=== PATIENT | female | born 1945 | race Caucasian/White ===

== ENCOUNTER 2022-11-11 06:40 | Day surgery (SDC) | payer OTHER, SELFPAY ==
--- NOTE | 2022-11-11 06:53 | SUR.PREOP ---
Patient provided home covid negative results to RN.
--- NOTE | 2022-11-11 06:53 | SUR.PREOP ---
The eye drops brought by the patient (Ketorolac and Prednisolone) are examined and I have determined they are labeled by the patient's pharmacy for this patient as prescribed by the surgeon. The bottles are intact, recently obtained and appear to be correct.
[2022-11-11] MEDS: TETRACAINE 0.5% OPHTH 1 DROP EYE-RIGHT ×2 (07:06→07:13)
[2022-11-11] MEDS: KETOROLAC OPHTH 0.5% 1 DROP EYE-RIGHT ×3 (07:09→07:32)
[2022-11-11 07:29] VITALS: BMI 37.5
--- NOTE | 2022-11-11 07:29 | W.ANESCHARGE ---
Anesthesia Charges Start Date/Time Anesthesia Start Date: 11/11/22 Anesthesia Start Time: 07:57 Stop Date/Time Anesthesia Stop Date: 11/11/22 Anesthesia Stop Time: 08:42 Summary Extremes of Age - Over 70 or under 1: MDA
[2022-11-11 07:35] VITALS: BP 172/86; PULSE 59; RESP 16; TEMP 36.4; O2SAT 95
[2022-11-11] MEDS: SODIUM CHLORIDE 0.9 % (FLUSH) 10 ML SYRINGE IVF (07:37)
--- NOTE | 2022-11-11 08:00 | P.ANES_ITS ---
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
[2022-11-11] MEDS: TETRACAINE 0.5% OPHTH 2 DROP EYE-RIGHT (08:01)
[2022-11-11] MEDS: BALANCED SALT IRRIG SOLN 15 ML EYE-RIGHT (08:05)
[2022-11-11 08:48] VITALS: BP 168/90; PULSE 61; RESP 16; TEMP 36.7; O2SAT 95
--- NOTE | 2022-11-11 09:30 | P.OPTPRC_ITS ---
Procedure Note Date of procedure: 11/11/22 Will [facility] bill your pro fee for this procedure?: Yes Procedure Description: SURGEON: Kiera Garcia MD PREOPERATIVE DIAGNOSIS: 1. Nuclear sclerotic cataract, right eye. 2. Miosis, right eye. POSTOPERATIVE DIAGNOSIS: 1. Nuclear sclerotic cataract, right eye. 2. Miosis, right eye. NAME OF OPERATION: Phacoemulsification of cataract with posterior chamber intraocular lens implantation in the right eye with pupilloplasty. ANESTHESIA: Topical. ESTIMATED BLOOD LOSS: Less than 2 cc. COMPLICATIONS: None. PATHOLOGY SPECIMEN: None. INDICATIONS: See consult note for details. The risks, benefits and alternatives of the procedure were explained to the patient, who elected to proceed and signed informed consent to do so. PROCEDURE: The patient was brought to the pre-holding area where the right eye was identified as the operative eye. I placed my initials above this eye. The patient received eye drops consisting of 0.5% tetracaine, 1% tropicamide, 10% phenylephrine, and 0.5% ketorolac. The patient was then brought to the operating room where the right eye was again identified as the operative eye. The eye was prepped with Betadine and draped in the usual sterile ophthalmic fashion. A #15 super-sharp blade was used to create a paracentesis site. 1% non-preserved intracameral lidocaine was injected into the anterior chamber. Endocoat was injected into the anterior chamber. A 2.4 mm keratome was used to create a three-plane self-sealing incision 1 mm anterior to the temporal limbus. A #15 super-sharp blade was used to create four additional paracentesis sites. Four Grieshaber iris hooks were placed in order to stretch the iris. A cystotome was used to create an anterior capsular leaflet. The Utrata forceps were used to extend this to form a continuous curvilinear capsulorrhexis. Hydrodissection was performed. The cataract was removed with phacoemulsification using the [id number] technique. The irrigation and aspiration tip was used to remove the remaining cortex. Healon was injected into the capsular bag. An KRIS ZCB00 intraocular lens of 16.0 diopters was injected into the capsular bag. The four Grieshaber iris hooks were removed. The irrigation and aspiration tip was used to remove the remaining viscoelastic. Miostat was injected into the anterior chamber. Balanced salt solution on a cannula was used to hydrate the wound, and the wound was found to be watertight. The pupil was noted to be round. DISPOSITION: The patient was taken to the recovery room and discharged to home in stable condition. The patient was instructed to call me or go to the emergency department with any sudden change, including dramatic loss of vision, severe pain in the eye or eyebrow region, nausea, or vomiting. The patient will follow up in the clinic tomorrow morning.
== END 2022-11-11 09:05 | disposition home or self-care (01) ==
PROVIDERS: PCP Family Medicine; Visit Provider Ophthalmology
PROC: (CPT 66982; principal; 2022-11-11 06:45)
DX: H25.11 Age-related nuclear cataract, right eye (principal); H57.03 Miosis
CPT/HCPCS: 66982; 00142; 99100; A9270; J2250; J3010; V2632

== ENCOUNTER 2022-11-25 06:42 | Day surgery (SDC) | payer OTHER, SELFPAY ==
[2022-11-25] MEDS: TETRACAINE 0.5% OPHTH 1 DROP EYE-LEFT ×2 (06:40→06:45)
[2022-11-25] MEDS: KETOROLAC OPHTH 0.5% 1 DROP EYE-LEFT ×3 (06:40→06:50)
[2022-11-25 07:00] VITALS: BP 197/111; PULSE 84; RESP 16; TEMP 36.9; O2SAT 94; BMI 37.3
[2022-11-25] MEDS: SODIUM CHLORIDE 0.9 % (FLUSH) 10 ML SYRINGE IVF (07:15)
--- NOTE | 2022-11-25 07:16 | SUR.PREOP ---
The eye drops brought by the patient (Ketorolac, Oflaxacin, and Prednisolone) are examined and I have determined they are labeled by the patient's pharmacy for this patient as prescribed by the surgeon. The bottles are intact, recently obtained and appear to be correct.
[2022-11-25] MEDS: TETRACAINE 0.5% OPHTH 2 DROP EYE-LEFT (07:53)
[2022-11-25] MEDS: BALANCED SALT IRRIG SOLN 15 ML EYE-LEFT (07:58)
--- NOTE | 2022-11-25 08:08 | W.ANESCHARGE ---
Anesthesia Charges Start Date/Time Anesthesia Start Date: 11/25/22 Anesthesia Start Time: 07:49 Stop Date/Time Anesthesia Stop Date: 11/25/22 Anesthesia Stop Time: 08:23 Summary Extremes of Age - Over 70 or under 1: MDA
[2022-11-25 08:20] VITALS: BP 169/85; PULSE 58; RESP 16; TEMP 36.4; O2SAT 96
--- NOTE | 2022-11-25 08:20 | W.ANESCHARGE ---
Anesthesia Charges Start Date/Time Anesthesia Start Date: 11/25/22 Anesthesia Start Time: 07:49 Stop Date/Time Anesthesia Stop Date: 11/25/22 Anesthesia Stop Time: 08:23
--- NOTE | 2022-11-25 08:27 | W.PM.OPTPROC ---
Procedure Note Date of procedure: 11/25/22 Will [facility] bill your pro fee for this procedure?: Yes Procedure Description: SURGEON: Kiera Garcia MD PREOPERATIVE DIAGNOSIS: Nuclear sclerotic cataract, left eye. POSTOPERATIVE DIAGNOSIS: Nuclear sclerotic cataract, left eye. NAME OF OPERATION: Phacoemulsification of cataract with posterior chamber intraocular lens implantation in the left eye. ANESTHESIA: Topical. ESTIMATED BLOOD LOSS: Less than 2 cc. COMPLICATIONS: None. PATHOLOGY SPECIMEN: None. INDICATIONS: See consult note for details. The risks, benefits and alternatives of the procedure were explained to the patient, who elected to proceed and signed informed consent to do so. PROCEDURE: The patient was brought to the pre-holding area where the left eye was identified as the operative eye. I placed my initials above this eye. The patient received eye drops consisting of 0.5% tetracaine, 1% tropicamide, 10% phenylephrine, and 0.5% ketorolac. The patient was then brought to the operating room where the left eye was again identified as the operative eye. The eye was prepped with Betadine and draped in the usual sterile ophthalmic fashion. A #15 super-sharp blade was used to create a paracentesis site. 1% non-preserved intracameral lidocaine was injected into the anterior chamber. Endocoat was injected into the anterior chamber. A 2.4 mm keratome was used to create a three-plane self-sealing incision 1 mm anterior to the temporal limbus. A cystotome was used to create an anterior capsular leaflet. The Utrata forceps were used to extend this to form a continuous curvilinear capsulorrhexis. Hydrodissection was performed. The cataract was removed with phacoemulsification using the [id number] technique. There was mild iris prolapse at the incision site. The iris was carefully repositioned with a sweeping motion with the 2nd instrument. The irrigation and aspiration tip was used to remove the remaining cortex. Healon was injected into the capsular bag. An KRIS ZCB00 intraocular lens of 17.0 diopters was injected into the capsular bag. The irrigation and aspiration tip was used to remove the remaining viscoelastic. Miostat was injected in the anterior chamber due to the intermittent iris prolapse. Balanced salt solution on a cannula was used to hydrate the wound, and the wound was found to be watertight. The pupil was noted to be round. DISPOSITION: The patient was taken to the recovery room and discharged to home in stable condition. The patient was instructed to call me or go to the emergency department with any sudden change, including dramatic loss of vision, severe pain in the eye or eyebrow region, nausea, or vomiting. The patient will follow up in the clinic tomorrow morning.
== END 2022-11-25 08:45 | disposition home or self-care (01) ==
LOC: OR 06:42
PROVIDERS: PCP Family Medicine; Visit Provider Ophthalmology
PROC: (CPT 66984; principal; 2022-11-25 06:45)
DX: H25.12 Age-related nuclear cataract, left eye (principal)
CPT/HCPCS: 66984; 00142; 99100; A9270; J2250; J3010; V2632

== ENCOUNTER 2023-03-15 06:49 | Emergency (ER) | payer OTHER, SELFPAY ==
[2023-03-15 07:06] VITALS: BP 158/83; PULSE 74; RESP 18; TEMP 36.4; O2SAT 92; BMI 37.2
--- NOTE | 2023-03-15 07:22 | CRLHL7_ITS ---
For Patients: As a result of the Century Cures Act, medical imaging exams and procedure reports are released immediately into your electronic medical record. You may view this report before your referring provider. If you have questions, please contact your health care provider. Indication: Pain and swelling. Redness. Technique: A total of three views of the right foot were acquired. Comparison: None Findings: Bones: Alignment is normal. No fractures or bone lesions. Joint spaces: Minor arthritic changes Soft tissues: Calcaneal spurs. Soft tissue swelling. No gas within soft tissues. No radiopaque foreign body. Impression: Minor arthritic changes. Calcaneal spurs. Soft tissue swelling. No gas within soft tissues. No radiopaque foreign body. No acute fracture, dislocation or destructive process. Dictated by Atilio Patten MD @ 03/15/2023 7:55:51 AM (Electronically Signed)
--- NOTE | 2023-03-15 07:25 | ED.GENADULT ---
HPI - General Adult General Chief complaint: Extremity Pain/Injury, Lower Stated complaint: R foot injury Time Seen by Provider: 03/15/23 07:15 Source: patient Mode of arrival: ambulatory Limitations: no limitations History of Present Illness HPI narrative: 77-year-old female with notable history of hypertension presents to the emergency department with right lower ankle/medial foot pain for the past several months, worsening today. She reports that she saw her primary care doctor last week who has referred her to Podiatry but it will take several weeks get an appointment. There was no indication to do x-rays or blood work at that time. She reports that the pain is been worsening over the last few days. No trauma or injury. No prior surgery to the area, no fever. It does feel more swollen to her and is slightly warm to the touch. No skin infection, laceration or insect bites that started her symptoms. She is otherwise feeling well with no fevers or other unusual systemic symptoms. She has been taking ibuprofen 800 mg once daily for the past couple of days and it does seem to help in the mornings but it wears off and she did not know if she could take the medication again. She has not tried Tylenol, ice, compression or other treatments. No other affected joints currently. No anticoagulant use. Past medical history notable for hypertension per her report. She says that she takes atenolol, chlorthalidone, potassium and simvastatin. Notable for chlorthalidone to increase her risk of gout. She is a nonsmoker. No pertinent travel. ROS is notable for the musculoskeletal symptoms as above. Denies any other hematological, generalized, musculoskeletal, neurological or skin changes. Related Data Home Medications Medication Instructions Recorded Confirmed atenolol 50 mg-chlorthalidone 25 1 tab PO DAILY 11/10/22 03/15/23 mg tablet potassium chloride 10 mEq 20 meq PO BID 11/10/22 03/15/23 tablet,extended release(part/cryst) simvastatin 40 mg tablet 40 mg PO HS 11/10/22 03/15/23 Previous Rx's Medication Instructions Recorded prednisone 20 mg tablet 20 mg PO DAILY 5 days #5 tabs 03/15/23 tramadol 50 mg tablet 50 mg PO Q8H PRN pain #10 tabs 03/15/23 Allergies Allergy/AdvReac Type Severity Reaction Status Date / Time codeine Allergy Verified 03/15/23 07:12 lisinopril Allergy Verified 03/15/23 07:12 [facility] Medical History Breast cancer ?C50.919 - Malignant neoplasm of unspecified site of unspecified female breast (ICD-10) Hypokalemia ?E87.6 - Hypokalemia (ICD-10) Hypercholesteremia ?E78.00 - Pure hypercholesterolemia, unspecified (ICD-10) Hypertension ?I10 - Essential (primary) hypertension (ICD-10) Surgical History Hx of tubal ligation ?Z98.51 - Tubal ligation status (ICD-10) 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 - Presence of right artificial knee joint (ICD-10) Hx of left mastectomy ?Z90.12 - Acquired absence of left breast and nipple (ICD-10) Hx of appendectomy ?Z90.49 - Acquired absence of other specified parts of digestive tract (ICD-10) Social History Smoking Status: Never smoker How often do you have a drink containing alcohol: 2-3 times a week How many standard drinks containing alcohol do you have on a typical day: 1 or 2 AUDIT-C Alcohol total score: 3 Non-prescribed substance use: denies use Caffeine: Yes (coffee) Are you using contraception or practicing any form of control: No Exam Const: Vital Signs, click to edit/add: Vital Signs - 24 hr 03/15/23 07:06 Temperature 97.6 F Pulse Rate [Right Pulse Oximeter] 74 Respiratory Rate 18 Blood Pressure [Ri ght Upper Arm] 158/83 H Pulse Oximetry 92 Oxygen Delivery Me thod Room Air Documenting provider has reviewed patient's vital signs: yes Common normals: no apparent distress General appearance: cooperative and comfortable Other: Well nourished, well hydrated, does not appear acutely ill. HENMT: Common normals: normocephalic Head and scalp: normocephalic Mouth: oral and palatal mucosa normal Throat: posterior oropharynx normal Eye: General eye: normal appearance of both eyes Other: Normal gaze and tracking Resp: Common normals: normal respiratory effort, no use of accessory muscles and clear to auscultation bilaterally Auscultation: clear to auscultation bilaterally Cardio: Common normals: regular rate, regular rhythm and peripheral pulses 2+ throughout Rate: regular rate Rhythm: regular rhythm Peripheral pulses: pulses 2+ throughout Extremity: Other: Left foot and ankle normal. Right foot and ankle show mild swelling, warmth slight redness to the medial hindfoot, lower medial ankle area. Tender to palpation with no effusion. No broken skin, bruising or signs of lacerations. She moves the toes normally. She can flex extend invert and reji at the ankle with no restrictions but it is tender. No tenderness at the 1st MTP. Osteoarthritic changes noted to the hands wrists and feet but do not appear acutely inflamed with the exception of the foot joint as described above. Neuro: Speech: speech normal Motor exam: strength 5/5 throughout and no movement abnormalities noted Psych: Attitude: engaged Insight: fair Judgement: fair Skin: Common normals: no rashes or lesions noted General skin exam: no rashes or lesions noted Course Course Hospital Course: Suspect gout. Cannot exclude fracture, septic joint, osteoarthritis, tick-borne illness or other potential etiologies. Recommended x-ray, uric acid level, metabolic panel, CBC and CRP. Will start prednisone 50 mg p.o. x1, tramadol 100 mg and Tylenol 1000 mg. Re-evaluate after x-ray. Will plan to treat with prednisone taper and primary care follow-up if findings are as expected. Reevaluation(s) Time of Reevaluation #1: 08:28 Reevaluation #1: Reviewed initial labs and x-ray findings with patient. Discussed plan of care as outlined in discharge instructions, all questions answered. Vital Signs Vital signs: Initial Vital Signs Temperature 97.6 F 03/15/23 07:06 Temperature Source Temporal Artery Scan 03/15/23 07:06 Pulse Rate 74 03/15/23 07:06 Respiratory Rate 18 03/15/23 07:06 Blood Pressure 158/83 H 03/15/23 07:06 Blood Pressure Mean 108 H 03/15/23 07:06 Blood Pressure Position Sitting 03/15/23 07:06 Pulse Oximetry 92 03/15/23 07:06 Oxygen Delivery Method Room Air 03/15/23 07:06 Vital Signs Temperature 97.6 F 03/15/23 07:06 Pulse Rate 74 03/15/23 07:06 Respiratory Rate 18 03/15/23 07:06 Blood Pressure 158/83 H 03/15/23 07:06 Pulse Oximetry 92 03/15/23 07:06 Oxygen Delivery Method Room Air 03/15/23 07:06 Temperature 97.6 F 03/15/23 07:06 Pulse Rate 74 03/15/23 07:06 Respiratory Rate 18 03/15/23 07:06 Blood Pressure 158/83 H 03/15/23 07:06 Pulse Oximetry 92 03/15/23 07:06 Oxygen Delivery Method Room Air 03/15/23 07:06 Medical Decision Making Lab Data Lab results reviewed: Yes I reviewed the patient's lab results Lab results narrative: Not all labs are back. My day shift partner has elected to call patient if any abnormalities are seen. Labs: Lab Results 03/15/23 Range/Units 08:00 WBC 8.61 (4.50-11.00) K/uL RBC 4.32 (4.00-5.20) m/uL Hgb 13.3 (12.0-16.0) gm/dL Hct 39.7 (33.0-51.0) % MCV 92 (80-100) fL MCH 31 (26-34) pg MCHC 34 (32-36) gm/dL RDW Coeff of Galileo 12.5 (11.5-15.5) % Plt Count 179 (140-440) K/uL Neut % (Auto) 67.5 (42.0-72.0) % Lymph % (Auto) 13.2 L (20-44) % Davison % (Auto) 13.7 H (0.0-11.0) % Eos % (Auto) 4.8 (0.0-7.0) % Baso % (Auto) 0.5 (0.0-3.0) % Neut # (Auto) 5.81 (1.7-7.0) K/uL Lymph # (Auto) 1.10 (0.90-2.90) K/uL Davison # (Auto) 1.20 H (0.00-0.90) K/UL Eos # (Auto) 0.41 (0.00-0.50) K/uL Baso # (Auto) 0.04 (0.00-0.30) K/uL Abs Immat Gran (auto) 0.03 (0.00-0.30) K/uL Imm/Tot Granulo (auto) 0.3 % Imaging Data X-ray foot: Attestation: I have reviewed the pertinent imaging results. My impression: Osteoarthritic changes but no obvious fracture, effusions or other abnormality Radiologist's impression: Impression: Minor arthritic changes. Calcaneal spurs. Soft tissue swelling. No gas within soft tissues. No radiopaque foreign body. No acute fracture, dislocation or destructive process. Discharge Plan Discharge Clinical Impression: Gout of foot Patient Disposition: Home, Self-Care Condition: Stable Instructions: Gout (ED) Additional Instructions: As we discussed, I suspect that this is gouty arthritis in your foot. There certainly is some osteoarthritis on x-ray which is the typical wear and tear type of arthritis. Based on the fact that things are swollen, warm and more painful than usual, I suspect that gout has set in. There are medications that can prevent gout and you should discuss whether continuing on the chlorthalidone is right for you because this can make you more likely to get gout flares. I would like for you to follow-up with a primary care provider in 2-3 days to see how things are going. You can decide together if you should start on allopurinol or another similar medication to help prevent these flares in the future. I have started you on prednisone, anti-inflammatory medication. You were given a high dose here in the emergency department. He will continue on a smaller dose daily for the next 5 days. You will take your next dose of this tomorrow morning. For pain control, began Tylenol 1000 mg every 6 hours. Rest, ice and elevate. I will also give you a limited supply of tramadol, a pain medication that is stronger if the pain is more bothersome. It is okay to use Tylenol p.m. and melatonin to help you sleep at night if the pain is very bothersome. It is okay to use ibuprofen as well if the Tylenol and tramadol are not helpful. The prednisone does take a couple of days to fully kick in but most people note marked improvement within just a couple of days. If you start running high fevers, have severe weakness and or other emergent type symptoms, come back to the emergency department. Activity Level: Activity as Tolerated Discharge Diet: Regular Prescriptions: New prednisone 20 mg tablet 20 mg PO DAILY 5 Days Qty: 5 0RF Rx Instructions: Began morning of 03/16 tramadol 50 mg tablet 50 mg PO Q8H PRN (Reason: pain) Qty: 10 0RF No Action atenolol-chlorthalidone 50-25 mg tablet 1 tab PO DAILY simvastatin 40 mg tablet 40 mg PO HS potassium chloride 10 mEq tablet,ER particles/crystals 20 meq PO BID Follow Up/Referrals: Homero Sierra MD [Primary Care Provider] - Stand Alone Forms: [employer] [facility] Info Instructions
[2023-03-15] MEDS: predniSONE 10 MG TABLET 50 MG PO (07:54)
[2023-03-15] MEDS: ACETAMINOPHEN 500 MG TABLET 1000 MG PO (07:54)
[2023-03-15] MEDS: TRAMADOL HCL 50 MG TABLET 100 MG PO (07:55)
[2023-03-15 08:09] LABS: Basophils Absolute Auto 0.04 K/uL (0.00-0.30); Basophils Percent Auto 0.5 % (0.0-3.0); Eosinophils Absolute Auto 0.41 K/uL (0.00-0.50); Eosinophils Percent Auto 4.8 % (0.0-7.0); Hematocrit 39.7 % (33.0-51.0); Hemoglobin* 13.3 gm/dL (12.0-16.0); Immature Granulocytes Abs Auto 0.03 K/uL (0.00-0.30); Immature Granulocytes Pct Auto 0.3 %; Lymphocytes Percent Auto 13.2 % (20-44); Mean Corpuscular HGB Conc 34 gm/dL (32-36); Mean Corpuscular Hemoglobin 31 pg (26-34); Mean Corpuscular Volume 92 fL (80-100); Monocytes Percent Auto 13.7 % (0.0-11.0); Neutrophils Absolute Auto 5.81 K/uL (1.7-7.0); Neutrophils Percent Auto 67.5 % (42.0-72.0); Platelet Count* 179 K/uL (140-440); RDW Coefficient of Variation % 12.5 % (11.5-15.5); Red Blood Count 4.32 m/uL (4.00-5.20); White Blood Count* 8.61 K/uL (4.50-11.00)
[2023-03-15 08:20] LABS: Slide Review Reflex No
[2023-03-15 08:31] LABS: Chloride* 95 mmol/L (96-114); Potassium* 3.5 mmol/L (3.6-5.1); Sodium* 136 mmol/L (135-149)
[2023-03-15 08:34] LABS: Creatinine* 0.9 mg/dL (0.5-1.5); Est. Creatinine Clearance* 38.35; Estimated Glomerular Filt Rate 65 ml/min
[2023-03-15 08:35] LABS: Blood Urea Nitrogen* 19 mg/dL (7-30); Calcium* 9.3 mg/dL (8.4-10.6); Carbon Dioxide* 33 mmol/L (20-32); Glucose* 150 mg/dL (60-115); Uric Acid* 5.9 mg/dL (2.2-8.4)
[2023-03-15 08:37] LABS: C Reactive Protein* 2.3 mg/dL (0.5-1.0)
[2023-03-15 11:11] LABS: Anion Gap 8 mEq/L (7-15)
== END 2023-03-15 08:48 | disposition home or self-care (01) ==
PROVIDERS: Emergency Provider Family Medicine; PCP Family Medicine
DX: M10.9 Gout, unspecified (principal)
CPT/HCPCS: 36415; 73630; 80048; 84550; 85025; 86140; 99284; A9270; J7512

== ENCOUNTER 2023-05-18 16:02 | Emergency (ER) | payer OTHER, SELFPAY ==
[2023-05-18 16:33] VITALS: BP 188/103; PULSE 69; RESP 18; TEMP 36.6; O2SAT 95; BMI 35.4
--- NOTE | 2023-05-18 18:04 | CRLHL7_ITS ---
For Patients: As a result of the Century Cures Act, medical imaging exams and procedure reports are released immediately into your electronic medical record. You may view this report before your referring provider. If you have questions, please contact your health care provider. INDICATION: Right lateral calf palpable lump and pain. TECHNIQUE: Ultrasound venous duplex lower right extremity. Compression venous exam was performed using bone-scale, color Doppler, and spectral Doppler analysis. Focused sonographic evaluation was performed in the area the palpable lump along the lateral mid calf. COMPARISON: None available. FINDINGS: Deep veins: Sonographic imaging demonstrates the right common femoral, deep femoral, superficial femoral, popliteal, posterior tibial, peroneal and the contralateral left common femoral veins to be fully compressible with normal color Doppler blood flow. Superficial veins: Greater saphenous vein is fully compressible. No popliteal cyst. Limited focused examination in the area of the patient`s palpable abnormality demonstrates a small amount of subcutaneous edema. More detailed evaluation was not performed. IMPRESSION: No right lower extremity deep venous thrombosis. Dictated by Laura Matias MD @ 05/18/2023 7:38:03 PM (Electronically Signed)
--- NOTE | 2023-05-18 18:05 | ED_ITS ---
HPI - Extremity Injury (Lower) General Date Seen: 05/18/23 <Romero Hou MD - Last Filed: 05/20/23 12:51> Chief Complaint: Extremity Pain/Injury, Lower <Romero Hou MD - Last Filed: 05/20/23 12:51> Stated Complaint: R leg painful lump-referred by [facility]? <Romero Hou MD - Last Filed: 05/20/23 12:51> Time Seen by Provider: 05/18/23 18:05 <Romero Hou MD - Last Filed: 05/20/23 12:51> Source: patient <Romero Hou MD - Last Filed: 05/20/23 12:51> Mode of arrival: ambulatory <Romero Hou MD - Last Filed: 05/20/23 12:51> Limitations: no limitations <Romero Hou MD - Last Filed: 05/20/23 12:51> History of Present Illness HPI Narrative: Patient is a delightful 69-year-old female presents here with right leg pain, she describes a certain spot over her right lower leg. Below her knee that has been painful for approximately 3 weeks it is slightly worsened in the last few days. She called [facility] today and they suggested she come to the emergency room. She has never before had a DVT, she has had superficial thrombophlebitis. History of gout in right ankle, that cleared up approximately 1 month ago. She denies any chest pain shortness of breath feeling that she is going to pass out or hemoptysis. She is not on any anticoagulants. No history of recent breast cancer but 15 years ago ago she was diagnosed with left-sided breast cancer. <Romero Hou MD - Last Filed: 05/20/23 12:51> Related Data Home Medications: Home Medications Medication Instructions Recorded Confirmed atenolol 50 mg-chlorthalidone 25 1 tab PO DAILY 11/10/22 05/18/23 mg tablet potassium chloride 10 mEq 20 meq PO BID 11/10/22 05/18/23 tablet,extended release(part/cryst) simvastatin 40 mg tablet 40 mg PO HS 11/10/22 05/18/23 <Romero Hou MD - Last Filed: 05/20/23 12:51> Allergies/Adverse Reactions: Allergies Allergy/AdvReac Type Severity Reaction Status Date / Time codeine Allergy Verified 05/18/23 16:39 lisinopril Allergy Verified 05/18/23 16:39 <Romero Hou MD - Last Filed: 05/20/23 12:51> Review of Systems Status of ROS: Reports: 10 or more systems reviewed and unremarkable except as noted in History and below <Romero Hou MD - Last Filed: 05/20/23 12:51> [facility] Medical History: Medical History Breast cancer ?C50.919 - Malignant neoplasm of unspecified site of unspecified female breast (ICD-10) Hypokalemia ?E87.6 - Hypokalemia (ICD-10) Hypercholesteremia ?E78.00 - Pure hypercholesterolemia, unspecified (ICD-10) Hypertension ?I10 - Essential (primary) hypertension (ICD-10) <Romero Hou MD - Last Filed: 05/20/23 12:51> Surgical History: Surgical History Hx of tubal ligation ?Z98.51 - Tubal ligation status (ICD-10) 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 - Presence of right artificial knee joint (ICD-10) Hx of left mastectomy ?Z90.12 - Acquired absence of left breast and nipple (ICD-10) Hx of appendectomy ?Z90.49 - Acquired absence of other specified parts of digestive tract (ICD- 10) <Romero Hou MD - Last Filed: 05/20/23 12:51> Social History: Social History Smoking Status: Never smoker How often do you have a drink containing alcohol: 2-3 times a week How many standard drinks containing alcohol do you have on a typical day: 1 or 2 AUDIT-C Alcohol total score: 3 Non-prescribed substance use: denies use Caffeine: Yes (coffee) Are you using contraception or practicing any form of control: No service: No <Romero Hou MD - Last Filed: 05/20/23 12:51> Exam Narrative: Exam Narrative: Patient is seen in the hallway due to the dizziness, she does have an elevated blood pressure. Denies any current really significant pain, she shows me her right lower leg, on the outside part of her lower extremity, there is an area of slight redness his discomfort, proximally 3 x 3 cm, I suspect this is superficial thrombophlebitis or distal pulses DP and posterior tibial are normal popliteal is normal, there is no significant edema she moves her extremities through full range of motion. No effusion of her ankle or knee are noted. Her chest is good air entry bilaterally with no wheezing crackles noted her heart sounds are normal. <Romero Hou MD - Last Filed: 05/20/23 12:51> Exam Narrative: Patient is seen in the hallway due to the busy-ness, she does have an elevated blood pressure. Denies any current really significant pain, she shows me her right lower leg, on the outside part of her lower extremity, there is an area of slight redness his discomfort, proximally 3 x 3 cm, I suspect this is superficial thrombophlebitis or distal pulses DP and posterior tibial are normal popliteal is normal, there is no significant edema she moves her extremities through full range of motion. No effusion of her ankle or knee are noted. Her chest is good air entry bilaterally with no wheezing crackles noted her heart sounds are normal. <Mateo Gupta MD - Last Filed: 05/18/23 18:59> Const: Vital Signs, click to edit/add: Vital Signs - 24 hr 05/18/23 16:33 Temperature 97.8 F Pulse Rate [Pulse Oximeter] 69 Respiratory Rate 18 Blood Pressure [Ri ght Upper Arm] 188/103 H Pulse Oximetry 95 Oxygen Delivery Me thod Room Air <Romero oHu MD - Last Filed: 05/20/23 12:51> Vital Signs, click to edit/add: Vital Signs - 24 hr 05/18/23 16:33 Temperature 97.8 F Pulse Rate [Pulse Oximeter] 69 Respiratory Rate 18 Blood Pressure [Ri ght Upper Arm] 188/103 H Pulse Oximetry 95 Oxygen Delivery Me thod Room Air <Mateo Gupta MD - Last Filed: 05/18/23 18:59> Documenting provider has reviewed patient's vital signs: yes <Romero Hou MD - Last Filed: 05/20/23 12:51> Course Vital Signs Vital signs: Initial Vital Signs Temperature 97.8 F 05/18/23 16:33 Temperature Source Temporal Artery Scan 05/18/23 16:33 Pulse Rate 69 05/18/23 16:33 Respiratory Rate 18 05/18/23 16:33 Blood Pressure 188/103 H 05/18/23 16:33 Blood Pressure Mean 131 H 05/18/23 16:33 Blood Pressure Position Sitting 05/18/23 16:33 Pulse Oximetry 95 05/18/23 16:33 Oxygen Delivery Method Room Air 05/18/23 16:33 Vital Signs Temperature 97.8 F 05/18/23 16:33 Pulse Rate 69 05/18/23 16:33 Respiratory Rate 18 05/18/23 16:33 Blood Pressure 188/103 H 05/18/23 16:33 Pulse Oximetry 95 05/18/23 16:33 Oxygen Delivery Method Room Air 05/18/23 16:33 Temperature 97.8 F 05/18/23 16:33 Pulse Rate 69 05/18/23 16:33 Respiratory Rate 18 05/18/23 16:33 Blood Pressure 188/103 H 05/18/23 16:33 Pulse Oximetry 95 05/18/23 16:33 Oxygen Delivery Method Room Air 05/18/23 16:33 <Romero Hou MD - Last Filed: 05/20/23 12:51> Initial Vital Signs Temperature 97.8 F 05/18/23 16:33 Temperature Source Temporal Artery Scan 05/18/23 16:33 Pulse Rate 69 05/18/23 16:33 Respiratory Rate 18 05/18/23 16:33 Blood Pressure 188/103 H 05/18/23 16:33 Blood Pressure Mean 131 H 05/18/23 16:33 Blood Pressure Position Sitting 05/18/23 16:33 Pulse Oximetry 95 05/18/23 16:33 Oxygen Delivery Method Room Air 05/18/23 16:33 Vital Signs Temperature 97.8 F 05/18/23 16:33 Pulse Rate 69 05/18/23 16:33 Respiratory Rate 18 05/18/23 16:33 Blood Pressure 188/103 H 05/18/23 16:33 Pulse Oximetry 95 05/18/23 16:33 Oxygen Delivery Method Room Air 05/18/23 16:33 Temperature 97.8 F 05/18/23 16:33 Pulse Rate 69 05/18/23 16:33 Respiratory Rate 18 05/18/23 16:33 Blood Pressure 188/103 H 05/18/23 16:33 Pulse Oximetry 95 05/18/23 16:33 Oxygen Delivery Method Room Air 05/18/23 16:33 <Mateo Gupta MD - Last Filed: 05/18/23 18:59> MDM - Extremity Injury (Lower) MDM Narrative Medical decision making narrative: I discussed with her we will do an ultrasound to rule this out but I suspect this is more of a superficial thrombophlebitis. She does have elevated blood pressure she will need to follow-up with primary care physician, she was comfortable with this plan <Romero Hou MD - Last Filed: 05/20/23 12:51> I discussed with her we will do an ultrasound to rule this out but I suspect this is more of a superficial thrombophlebitis. She does have elevated blood pressure she will need to follow-up with primary care physician, she was comfortable with this plan. Care for this patient was transferred to [place] to look after ultrasound results. Ultrasound of the right lower extremity returns with no acute findings. There is no evidence of thrombus nor does her symptoms appear to be superficial thrombophlebitis. I did examine her and do note a small area of erythema with very mild swelling which appears to be more like something related to an injury event. What ever the case her exam and ultrasound results are reassuring. This patient is okay to be discharged home to continue current plans. <Mateo Gupta MD - Last Filed: 05/18/23 18:59> Medical Records Attestation: I reviewed the patient's medical records. <Romero Hou MD - Last Filed: 05/20/23 12:51> Discharge Plan Discharge Clinical Impression: Leg pain, right <Romero Hou MD - Last Filed: 05/20/23 12:51> Patient Disposition: Home, Self-Care <Romero Hou MD - Last Filed: 05/20/23 12:51> Condition: Stable <Romero Hou MD - Last Filed: 05/20/23 12:51> Instructions: Leg Pain (ED) <Romero Hou MD - Last Filed: 05/20/23 12:51> Additional Instructions: Home rest use of Tylenol, follow-up with primary care, <Romero Hou MD - Last Filed: 05/20/23 12:51> Prescriptions: No Action atenolol-chlorthalidone 50-25 mg tablet 1 tab PO DAILY simvastatin 40 mg tablet 40 mg PO HS potassium chloride 10 mEq tablet,ER particles/crystals 20 meq PO BID <Romero Hou MD - Last Filed: 05/20/23 12:51> Follow Up/Referrals: Homero Sierra MD [Primary Care Provider] - <Romero Hou MD - Last Filed: 05/20/23 12:51> Stand Alone Forms: [facility] Info Instructions <Romero Hou MD - Last Filed: 05/20/23 12:51>
== END 2023-05-18 19:12 | disposition home or self-care (01) ==
PROVIDERS: Emergency Provider Emergency Medicine Emergency Medical Services; PCP Family Medicine
DX: M79.604 Pain in right leg (principal)
CPT/HCPCS: 93971; 99283; 99284

== ENCOUNTER 2023-06-06 04:28 | Emergency (ER) | payer OTHER, SELFPAY ==
[2023-06-06 04:36] VITALS: BP 127/67; PULSE 90; RESP 20; TEMP 36.8; O2SAT 94; BMI 35.4
--- NOTE | 2023-06-06 04:43 | ED.GENADULT ---
HPI - General Adult General Chief complaint: Cough Stated complaint: Cough Time Seen by Provider: 06/06/23 04:43 History of Present Illness HPI narrative: nonproductive cough 3 d keeping her up at night. ibuprofen and cough syrup at midnight. no relief to came in 77-year-old woman presenting to the emergency department concern of cough. Has taken safe Tussin. She denies a head cold. Throat seems to be the source of this cough with a tickle. She does acknowledge what seems to be a history of allergies and normally would be treating with [facility] symptoms of allergies in fall and spring. She is not feeling any facial pain or pressure. No ear congestion. She does note a history of pneumonia with scarring a right lungs. She does not think she has a pneumonia now. It sounds like she has also tried menthol containing cough drops. Getting desperate hot water with lucian. Outside of coughing is not short of breath. With more questioning reports a persistent tickle in her throat that seems to be inspiring this cough. Seems to indicate a little bit more the right side. No reported difficulty swallowing. Related Data Home Medications Medication Instructions Recorded Confirmed atenolol 50 mg-chlorthalidone 25 1 tab PO DAILY 11/10/22 06/06/23 mg tablet potassium chloride 10 mEq 20 meq PO BID 11/10/22 06/06/23 tablet,extended release(part/cryst) simvastatin 40 mg tablet 40 mg PO HS 11/10/22 06/06/23 hydrochlorothiazide PO 06/06/23 Previous Rx's Medication Instructions Recorded benzonatate 200 mg capsule 200 mg PO TID PRN cough #15 caps 06/06/23 Allergies Allergy/AdvReac Type Severity Reaction Status Date / Time codeine Allergy Verified 05/18/23 16:39 lisinopril Allergy Verified 05/18/23 16:39 Review of Systems Status of ROS: Reports: 6 or more systems reviewed and unremarkable except as noted in History and below [facility] Medical History Breast cancer ?C50.919 - Malignant neoplasm of unspecified site of unspecified female breast (ICD-10) Hypokalemia ?E87.6 - Hypokalemia (ICD-10) Hypercholesteremia ?E78.00 - Pure hypercholesterolemia, unspecified (ICD-10) Hypertension ?I10 - Essential (primary) hypertension (ICD-10) Surgical History Hx of tubal ligation ?Z98.51 - Tubal ligation status (ICD-10) 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 Sounds congested. Head is atraumatic. Cranial nerves 2-12 intact. Neck is supple with trachea midline. No masses appreciated. Red rimmed eyes. She is regularly having a small to moderate cough. Lungs are clear. She hesitates with inspiratory effort I think as might trigger a cough. Subtly laryngitic. Heart in regular rate and rhythm. Extremities are well perfused she is without edema. Oropharynx is moist I do not actually see much in way of cobblestoning though a little difficult to visualize. Mildly erythematous. Const: Vital Signs, click to edit/add: Vital Signs - 24 hr 06/06/23 04:36 Temperature 98.3 F Pulse Rate [Pulse Oximeter] 90 Respiratory Rate 20 Blood Pressure [Le ft Upper Arm] 127/67 Pulse Oximetry 94 Oxygen Delivery Me thod Room Air Documenting provider has reviewed patient's vital signs: yes Course Vital Signs Vital signs: Initial Vital Signs Temperature 98.3 F 06/06/23 04:36 Temperature Source Temporal Artery Scan 06/06/23 04:36 Pulse Rate 90 06/06/23 04:36 Respiratory Rate 20 06/06/23 04:36 Blood Pressure 127/67 06/06/23 04:36 Blood Pressure Mean 87 06/06/23 04:36 Blood Pressure Position Sitting 06/06/23 04:36 Pulse Oximetry 94 06/06/23 04:36 Oxygen Delivery Method Room Air 06/06/23 04:36 Vital Signs Temperature 98.3 F 06/06/23 04:36 Pulse Rate 90 06/06/23 04:36 Respiratory Rate 20 06/06/23 04:36 Blood Pressure 127/67 06/06/23 04:36 Pulse Oximetry 94 06/06/23 04:36 Oxygen Delivery Method Room Air 06/06/23 04:36 Temperature 98.3 F 06/06/23 04:36 Pulse Rate 90 06/06/23 04:36 Respiratory Rate 18 06/06/23 06:26 Blood Pressure 127/67 06/06/23 04:36 Pulse Oximetry 97 06/06/23 06:26 Oxygen Delivery Method Room Air 06/06/23 06:26 Medications Administered Medications: Discontinued Medications Generic Name Dose Route Start Last Admin Trade Name Allison PRN Reason Stop Dose Admin Benzonatate 200 mg 06/06/23 04:57 06/06/23 05:11 Benzonatate 100 Mg Capsule PO 06/06/23 04:58 200 mg ONCE ONE Administration Epinephrine 0.5 ml 06/06/23 04:56 06/06/23 05:11 Racepinephrine Hcl 0.5 Ml Vial.Neb NEB 06/06/23 04:57 0.5 ml ONCE ONE Administration Medical Decision Making MDM Narrative Medical decision making narrative: I suspect postnasal drip is somewhat contributing to this irritation. She is desperate this point and wants some control the cough. I think this is more in the throat than the lungs. Practice here now is not to do nebulized lidocaine although I think this would be helpful. Will trial epinephrine nebulization. Humidified air might also be a benefit of this nebulization. Also be given a dose of benzonatate and some ice chips to suck on. With treatments above she did feel she was improved. Was coughing less frequently. Seemed less distressed. See patient discharge plan. Discharge Plan Discharge Clinical Impression: Cough Patient Disposition: Home, Self-Care Condition: Improved Additional Instructions: Focus on hydration. Prednisone has been prescribed for presumed inflammation. You can split the dosing over the course of the day if you like. You might consider taking 60 mg instead of 40 mg as prescribed on the 1st day. 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 This can be helpful for drying/decongestion in the setting of allergies as well. You can continue to take your Zyrtec until the 1st hard freeze. You might also use your steroid nasal sprays until then. You can continue with menthol cough drops. Might also benefit from menthol vapors. Half a tsp of honey sometimes works. Sucking on ice chips? Will send in this prescription of benzonatate/Tessalon Perles. We think this works by numbing the back of the throat a little bit somehow. Prescriptions: New benzonatate 200 mg capsule 200 mg PO TID PRN (Reason: cough) Qty: 15 1RF No Action atenolol-chlorthalidone 50-25 mg tablet 1 tab PO DAILY simvastatin 40 mg tablet 40 mg PO HS potassium chloride 10 mEq tablet,ER particles/crystals 20 meq PO BID hydrochlorothiazide PO Follow Up/Referrals: Homero Sierra MD [Primary Care Provider] - Stand [facility] Inst[facility]
[2023-06-06] MEDS: BENZONATATE 100 MG CAPSULE 200 MG PO (05:11)
[2023-06-06] MEDS: RACEPINEPHRINE HCL 0.5 ML VIAL.NEB NEB (05:11)
--- NOTE | 2023-06-06 05:32 | ED.NURSE ---
pt states throat and coughing feel better post neb and ice chips.
[2023-06-06 06:26] VITALS: RESP 18; O2SAT 97
== END 2023-06-06 06:26 | disposition home or self-care (01) ==
PROVIDERS: Emergency Provider Family Medicine; PCP Family Medicine
DX: R05.9 Cough, unspecified (principal)
CPT/HCPCS: 94640; 99283; 99284; A9270

== ENCOUNTER 2025-04-27 00:18 | Emergency (ER) | payer MEDICARE, SELFPAY ==
--- OUTSIDE RECORDS SUMMARY | 2025-04-27 00:20 | XMS_ITS | Clinical Summary ---
Author Organization [facility] Address [address] [place] [id number] Care Team Providers Care Billing Control Clerk Name Role Phone Homero Sierra MD Primary Care Provider [phone] Allergies Active Allergy Reactions Criticality Noted Date Comments Codeine 08/06/2008 sleepy Lisinopril Cough 07/03/2015 Medications melatonin 5 mg capsule Bedtime as needed Active ascorbic acid, vitamin C, (VITAMIN C) 500 mg tablet Daily Active ferrous sulfate, 65 mg elemental, tablet Daily Ac tive cetirizine (ZYRTEC) 10 mg tablet Take 1 Tablet (10 mg) by mouth once daily. 0 2020 Active miscellaneous medical supply misc As directed. NEURTROFERON (vitamin for boost immune system) 0 2021 Active medication order composerIndications:Ma lignant neoplasm of female breast, unspecified estrogen receptor status, unspecified laterality, unspecified site of breast (HC) Bras for breast prosthesis 6 Each 2022 Active cholecalciferol (Vitamin D) 1,000 unit capsule Take 1,000 units by mouth once daily. Active simvastatin (ZOCOR) 40 mg tabletIndications:Pure hypercholesterolemia Take 1 Tablet (40 mg) by mouth at bedtime. 90 Tablet 3 2024 Active potassium chloride (KLOR-CON M10) 10 mEq extended-release tablet (part/cryst)Indication s:Essential hypertension Take 2 Tablets (20 mEq) by mouth two times daily with meals. 360 Tablet 3 2024 Active atenolol-chlorthalidon e (50-25 mg) (TENORETIC 50) 50-25 mg tabletIndications:Esse ntial hypertension Take 1 Tablet by mouth once daily. 90 Tablet 3 2024 Active Breast ProsthesisIndications: Malignant neoplasm of female breast, unspecified estrogen receptor status, unspecified laterality, unspecified site of breast (HC) For personal use. 1 Each 2024 Active Breast ProsthesisIndications: Malignant neoplasm of female breast, unspecified estrogen receptor status, unspecified laterality, unspecified site of breast (HC) For personal use. 1 Device 04/04 Discontinued( Reorder (E-cancel not sent)) nystatin (MYCOSTATIN) creamIndications:Inter wilber Apply topically to affected area(s) 2 times daily. 30 g 04/04 Discontinued( *Med complete/Deya men complete/Leve l of care change) GARLIC EXTRACT ORAL Take by mouth. 0 04/04 Discontinued( *Med complete/Deya men complete/Leve l of care change) simvastatin (ZOCOR) 40 mg tabletIndications:Pure hypercholesterolemia Take 1 Tablet (40 mg) by mouth at bedtime. 90 Tablet 3 03/30 Discontinued atenolol-chlorthalidon e, 50-25 mg, (TENORETIC 50) 50-25 mg tabletIndications:Esse ntial hypertension Take 1 Tablet by mouth once daily. 90 Tablet 3 03/30 Discontinued potassium chloride (KLOR-CON M10) 10 mEq extended-release tablet (part/cryst)Indication s:Essential hypertension TAKE 2 TABLETS (20 MEQ) BY MOUTH TWO TIMES DAILY WITH MEALS. 120 Tablet 04/04 Discontinued( Reorder (E-cancel not sent)) atenolol-chlorthalidon e (50-25 mg) (TENORETIC 50) 50-25 mg tabletIndications:Esse ntial hypertension TAKE 1 TABLET BY MOUTH ONCE DAILY. 30 Tablet 04/04 Discontinued( Reorder (E-cancel not sent)) simvastatin (ZOCOR) 40 mg tabletIndications:Pure hypercholesterolemia TAKE 1 TABLET (40 MG) BY MOUTH AT BEDTIME. 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 07/03/2010 Pure hypercholesterolemia 01/21/2007 Unspecified essential hypertension 11/04/2006 Breast cancer 10/24/2004 Overview (02/08/2017): left mastectomy Resolved Problems Problem Noted Date Diagnosed Date Resolved Date Malignant neoplasm of other specified sites of female breast 05/04/2007 05/04/2007 Malignant neoplasm of other specified sites of female breast 11/04/2006 02/08/2017 Overview (11/04/2006): left breast Encounters Date Type Department Care Team Description 04/04/2025 7:35 AM CDT Office Visit [facility] [address] [place] [address] Homero Sierra MD Medicare ANNUAL (subsequent) Visit (80 years) 04/04/2025 Travel 03/28/2025 Refill [facility] [address] [place] [address] Homero Sierra MD Refill Request (Atenolol-chlorthalid one (50-25 Mg), Simvastatin) 03/05/2025 Refill [facility] [address] [place] [address] Homero Sierra MD Refill Request (Potassium Chloride) from Last 3 Months Immunizations Immunization Administration Dates Next Due AMB Influenza, IIV3 (Age >=3 years)(Flu Clinic Only) 05/20/2012 Influenza, High-dose Inactivated 04/29/2016,12/2013 Influenza, IIV3 (Age 6-35 mos) 04/15/2011 Influenza, IIV3 (Age >=3 years) 05/20/20 12,04/15/2011,06/11/2010,2006,07/03/2005 Influenza, IIV4 (=>6mos) MDV 05/21/2015 Influenza, Inactivated IIV3 (Age 65+ Years) Preserv Free 04/24/2019,05/15/2018 Pneumococcal Poly,23-Valent (Pneumovax) 03/15/2013 Pneumococcal conj 13-Valent (Prevnar 13) 04/29/2016 Td, Preservative Free (age > = 7 Years) 02/20/2013 Tdap 07/06/2007 Family History Medical History Relation Name Comments COPD Brother 1 Florentin on oxygen thera py Heart Disease Brother 1 Florentin of presum ed [place] at 75 Stroke Brother 1 Florentin Other Brother 2 Vijay back surgery Allergies Father Heart Disease Father heart attack a t 73 Hypertension Father Cancer Mother liver at 6 1 Cancer Other granddaughter Other Son 1 Anjel in his sle ep no autopsy at age 58 Obesity Son 2 Amilcar Cancer-breast No Family History Relation Name Status Comments Brother 1 Florentin Brother 2 Vijay Alive Father Mother Other granddaughter Other Son 1 Anjel Son 2 Amilcar Alive Son 3 Valeriano Alive Social History Tobacco Use Types Packs/Day Years Used Date Smoking Tobacco: Never Smokeless Tobacco: Never Tobacco Cessation:Counseling Given: Yes Alcohol Use Standard Drinks/Week Comments Yes 7 (1 standard drink = 0.6 oz pur e alcohol) 1 a day PHQ-2 Answer Date Recorded PHQ-2 TOTAL SCORE 0 04/04/2025 Social Connections Answer Date Recorded Do you often feel lonely or isolated from those around you? 0 04/04/2025 Alcohol Use Answer Date Recorded How often do you have a drink containing alcohol ? 4 04/04/2025 How many drinks containing a lcohol do you have on a typical day when you are drinking? 0 04/04/2025 How often do you have five or more drinks on one occasion? 0 04/04/2025 Financial Resource Strain Answer Date R ecorded Difficulty of Paying Living Expenses 3 04/04/2025 Difficulty of Paying Living Expenses Not on file 04/04/2025 Food Insecurity Answer Date Recorded Do you worry your food will run out before you are able to buy more? 1 04/04/2025 Transportation Needs Answer Date Record ed Does lack of transportation keep you from medica l appointments? 1 04/04/2025 Does lack of transportation keep you from work, meetings or getting things that you need? 1 04/04/2025 Housing Stability Answer Date Recorded What is your housing situation today? 1 04/04/2025 Utilities Answer Date Recorded Do you have trouble paying f or utilities (for example, heat, electricity, water, phone)? 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 Not on file Not on file Not on file Obstetrics History Last Filed Vital Signs Vital Sign Reading Time Taken Comments Blood Pressure 120/78 04/04/2025 8:13 AM CDT Pulse 67 04/04/2025 7:37 AM CDT Temperature 36.5 C (97.7 F) 04/04/2025 7:37 AM CDT Respiratory Rate 18 02/11/2015 11:18 AM CDT Oxygen Saturation 95% 04/04/2025 7:37 AM CDT Inhaled Oxygen Concentration - - Weight 86.4 kg (190 lb 8 oz) 04/04/2025 7:37 AM CDT Height 161 cm (5' 3.39) 04/04/2025 7:37 AM CDT Body Mass Index 33.34 04/04/2025 7:37 AM CDT Plan of Treatment Health Maintenance Due Date Last Done Comments COVID-19 vaccine series (#1) 1950 Zoster (shingles) series for age 50+ (1 of 2) 10/23/1963 RSV vaccine for adults or (1 - 1-dose 75+ series) 10/23/2019 Tetanus booster 02/20/2023 02/20/2013, 07/06/2007 Influenza Vaccine (#1) 2025 9, 05/15/2018, 04/29/2016, Additional history exists BMI (ht and wt on same day) for age 18+ 04/04/2026 04/04/2025, 02/29/2024, 03/05/2023, Additional history exists Depression screening for age 12+ 04/04/2026 04/04/2025, 02/29/2024, 03/05/2023, Additional history exists Medicare Wellness for age 65+ 04/05/2026 04/04/2025, 03/05/2023, 03/04/2022, Additional history exists DEXA/DXA scan for age 65+ Completed 03/24/2013 Pneumococcal series for age 50+ Completed 04/29/2016, 03/15/2013 Hepatitis B series for 19+ Aged Out N o longer eligible based on patient's age to complete this topic Procedures Procedure Name Priority Date/Time Associated Diagnosis Comments LIPID PANEL W REFLEX MEASURED LDL Routine 04/04/2025 8:33 AM CDT HYPERCHOLESTEROLEMIA BASIC METABOLIC PANEL Routine 04/04/2025 8:33 AM CDT Essential hypertension HEMOGLOBIN A1C Routine 04/04/2025 8:33 AM CDT Prediabetes XR DXA BONE DENSITY 2 SITES AXIAL Routine 03/24/2013 10:06 AM CDT Asymptomatic postmenopausal status (age-related) (natural) from Last 3 Months or Most Recently Relevant to Health Maintenance Results * (ABNORMAL) HEMOGLOBIN A1C (04/04/2025 8:33 AM CDT) HEMOGLOBIN A1C 5.9(H) <5.7 % 04/05/2025 4:08 AM CDT [facility] Comment: For someone without known diabetes, a hemoglobin A1c value between 5.7% and 6.4% is consistent with prediabetes and should be confirmed with a follow-up test. For someone with known diabetes, a value <7% indicates that their diabetes is well controlled. A1c targets should be individualized based on duration of diabetes, age, comorbid conditions, and other considerations. This assay result is consistent with an increased risk of diabetes. Currently, no consensus exists regarding use of hemoglobin A1c for diagnosis of diabetes for children. Blood BLOOD SPECIMEN / Unknown [facility] / Unknown 04/04/2025 8:33 AM CDT 04/04/2025 8:33 AM CDT us Homero Sierra MD CHEMISTRY Final Resu lt [facility] [address] [place] [address], * LIPID PANEL W REFLEX MEASURED LDL (04/04/2025 8:33 AM CDT) CHOLESTEROL, TOTAL 191 <200 mg/dL 04/05/2025 3:53 AM CDT [facility] TRIGLYCERIDES 101 <150 mg/dL 04/05/2025 3:53 AM CDT [facility] HDL CHOLESTEROL 74 > OR = 50 mg/dL 04/05/2025 3:53 AM CDT [facility] NON HDL CHOLESTEROL 117 <130 mg/dL (calc) 04/05/2025 3:53 AM CDT [facility] Comment: For patients with diabetes plus 1 major ASCVD risk factor, treating to a non-HDL-C goal of <100 mg/dL (LDL-C of <70 mg/dL) is considered a therapeutic option. CHOL/HDLC RATIO 2.6 <5.0 (calc) 04/05/2025 3:53 AM CDT [facility] LDL-CHOLESTEROL 98 mg/dL (calc) 04/05/2025 3:53 AM CDT [facility] Comment: Reference range: <100 Desirable range <100 mg/dL for primary prevention; <70 mg/dL for patients with CHD or diabetic patients with > or = 2 CHD risk factors. LDL-C is now calculated using the Mario-Deidra calculation, which is a validated novel method providing better accuracy than the Friedewald equation in the estimation of LDL-C. Mario SS et al. JCARLOS. 2013;310(19): 1132-3638 (http://education.[employer].com/faq/KQI187) Blood BLOOD SPECIMEN / Unknown [facility] / Unknown 04/04/2025 8:33 AM CDT 04/04/2025 8:33 AM CDT us Homero Sierra MD CHEMISTRY Final Resu lt [facility] [address] [place] [address], * (ABNORMAL) BASIC METABOLIC PANEL (04/04/2025 8:33 AM CDT) SODIUM 137 135 - 146 mmol/L 04/05/2025 3:53 AM CDT [facility] POTASSIUM 3.8 3.5 - 5.3 mmol/L 04/05/2025 3:53 AM CDT [facility] CARBON DIOXIDE 31 20 - 32 mmol/L 04/05/2025 3:53 AM CDT [facility] GLUCOSE 104(H) 65 - 99 mg/dL 04/05/2025 3:53 AM CDT [facility] Comment: Fasting reference interval For someone without known diabetes, a glucose value between 100 and 125 mg/dL is consistent with prediabetes and should be confirmed with a follow-up test. CALCIUM 9.5 8.6 - 10.4 mg/dL 04/05/2025 3:53 AM CDT [facility] CREATININE 0.97(H) 0.60 - 0.95 mg/dL 04/05/2025 3:53 AM CDT [facility] BUN/CREATININE RATIO 32(H) 6 - 22 (calc) 04/05/2025 3:53 AM CDT [facility] EGFR 59(L) > OR = 60 mL/min/1. 73m2 04/05/2025 3:53 AM CDT [facility] UREA NITROGEN (BUN) 31(H) 7 - 25 mg/dL 04/05/2025 3:53 AM CDT [facility] ELECTROLYTE BALANCE 8 7 - 17 mmol/L (calc) 04/05/2025 3:53 AM CDT [facility] CHLORIDE 98 98 - 110 mmol/L 04/05/2025 3:53 AM CDT [facility] Blood BLOOD SPECIMEN / Unknown [facility] / Unknown 04/04/2025 8:33 AM CDT 04/04/2025 8:33 AM CDT us Homero Sierra MD CHEMISTRY Final Resu lt [facility] [address] [place] [address], [place] [phone] * (ABNORMAL) XR DEXA BONE DENSITY 2 SITES [21127.1] (03/24/2013 10:06 AM CDT) Anatomical Region Laterality Modality Spine, HIPS, HIPL, HIPR Other Narrative 03/24/2013 1:26 PM CDT Please see scanned document for results of this study. Procedure Note Brisa Gordon PA - 03/24/2013 Please see scanned document for results of this study. us Jennifer PATEL DEXA Final Resu lt from Last 3 Months or Most Recently Relevant to Health Maintenance Insurance [employer]VANTAGE MR Care Teams Billing Control Clerk Relationship Specialty Start Date End Date Homero Sierra MD [address] [place] [address] PCP - General Family Practice 09/14/22
[2025-04-27 00:29] VITALS: BP 181/93; PULSE 76; RESP 18; TEMP 37; O2SAT 95; BMI 33.5
--- NOTE | 2025-04-27 00:38 | ED.GENADULT ---
HPI - General Adult General Chief complaint: Cough Stated complaint: cough Time Seen by Provider: 04/27/25 00:28 History of Present Illness HPI narrative: Patient is a 79-year-old woman who comes in today with 1 week history of cough. She has a tickle in her throat consistent with postnasal drip. Her cough is nonproductive but she is unable to get any rest secondary to the cough. She has had no fevers no chills no night sweats no sick contacts. She is not short of breath. She has no chest pain orthopnea no PND. Patient was taking Tessalon Perles but those did not help. No other related symptoms. Patient is on stable medication. Related Data Home Medications ?Medication ?Instructions ?Recorded ?Confirmed atenolol 50 mg-chlorthalidone 25 1 tab PO DAILY 11/10/22 04/27/25 mg tablet potassium chloride 10 mEq 20 meq PO BID 11/10/22 04/27/25 tablet,extended release(part/cryst) simvastatin 40 mg tablet 40 mg PO HS 11/10/22 04/27/25 hydrochlorothiazide PO 06/06/23 Previous Rx's ?Medication ?Instructions ?Recorded benzonatate 200 mg capsule 200 mg PO TID PRN cough #15 caps 06/06/23 Allergies Allergy/AdvReac Type Severity Reaction Status Date / Time codeine Allergy Verified 04/27/25 00:27 lisinopril Allergy Verified 04/27/25 00:27 Review of Systems Status of ROS: Reports: 10 or more systems reviewed and unremarkable except as noted in History and below [facility] Medical History Breast cancer ?C50.919 - Malignant neoplasm of unspecified site of unspecified female breast (ICD-10) Hypokalemia ?E87.6 - Hypokalemia (ICD-10) Hypercholesteremia ?E78.00 - Pure hypercholesterolemia, unspecified (ICD-10) Hypertension ?I10 - Essential (primary) hypertension (ICD-10) Surgical History Hx of tubal ligation ?Z98.51 - Tubal ligation status (ICD-10) 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 - Presence of right artificial knee joint (ICD-10) Hx of left mastectomy ?Z90.12 - Acquired absence of left breast and nipple (ICD-10) Hx of appendectomy ?Z90.49 - Acquired absence of other specified parts of digestive tract (ICD-10) Social History Smoking Status: Never smoker Non-prescribed substance use: denies use Caffeine: Yes (coffee) Are you using contraception or practicing any form of control: No service: No Exam Narrative: Exam Narrative: EXAM GENERAL: Patient appears comfortable and well. EYES: No scleral icterus. LYMPH: No supraclavicular or cervical lymphadenopathy. SKIN: Visible skin seen during exam normal or with benign process only. EXT: No dependent lower extremity pedal edema. HEART: Regular rate and rhythm with no murmurs, rubs, or gallops. LUNGS: Clear to auscultation bilaterally with no crackles or wheezes. ABD: Soft, non tender, non distended. PSYCH: Good eye contact, speech is not pressured. Const: Vital Signs, click to edit/add: Vital Signs - 24 hr 04/27/25 00:29 Temperature 98.6 F Pulse Rate [Right Pulse Oximeter] 76 Respiratory Rate 18 Blood Pressure [Ri ght Upper Arm] 181/93 H Pulse Oximetry 95 Oxygen Delivery Me thod Room Air Course Course ED Course: Patient seen and examined. Patient appears have a viral syndrome. I do not believe chest x-ray a viral swab would be helpful. He presented with similar symptoms in the past. I a do no her personally as I take care of her . At this time I did recommend symptomatic treatment as well as Robitussin AC as directed no driving or using machinery. Follow-up with her doctor as needed. Vital Signs Vital signs: Initial Vital Signs Temperature 98.6 F 04/27/25 00:29 Temperature Source Temporal Artery Scan 04/27/25 00:29 Pulse Rate 76 04/27/25 00:29 Respiratory Rate 18 04/27/25 00:29 Blood Pressure 181/93 H 04/27/25 00:29 Blood Pressure Mean 122 H 04/27/25 00:29 Blood Pressure Position Sitting 04/27/25 00:29 Pulse Oximetry 95 04/27/25 00:29 Oxygen Delivery Method Room Air 04/27/25 00:29 Vital Signs Temperature 98.6 F 04/27/25 00:29 Pulse Rate 76 04/27/25 00:29 Respiratory Rate 18 04/27/25 00:29 Blood Pressure 181/93 H 04/27/25 00:29 Pulse Oximetry 95 04/27/25 00:29 Oxygen Delivery Method Room Air 04/27/25 00:29 Temperature 98.6 F 04/27/25 00:29 Pulse Rate 76 04/27/25 00:29 Respiratory Rate 18 04/27/25 00:29 Blood Pressure 181/93 H 04/27/25 00:29 Pulse Oximetry 95 04/27/25 00:29 Oxygen Delivery Method Room Air 04/27/25 00:29 Discharge Plan Discharge Clinical Impression: Cough Patient Disposition: Home, Self-Care Condition: Stable Instructions: Acute Bronchitis (ED) Additional Instructions: Rupinder JAMES as directed Follow-up with your doctor next week if not improved. Activity Level: No Restrictions Discharge Diet: Regular Prescriptions: No Action atenolol-chlorthalidone 50-25 mg tablet 1 tab PO DAILY simvastatin 40 mg tablet 40 mg PO HS potassium chloride 10 mEq tablet,ER particles/crystals 20 meq PO BID hydrochlorothiazide PO benzonatate 200 mg capsule 200 mg PO TID PRN (Reason: cough) Qty: 15 1RF Follow Up/Referrals: Homero Sierra MD [Primary Care Provider, Family Practice] Stand Alone Forms: MyHealth Info Instructions
== END 2025-04-27 00:57 | disposition home or self-care (01) ==
PROVIDERS: Emergency Provider Internal Medicine; PCP Family Medicine
DX: R05.9 Cough, unspecified (principal); B34.9 Viral infection, unspecified
CPT/HCPCS: 99283